=== PATIENT | male | born 1975 | race Caucasian/White ===

== ENCOUNTER 2018-11-10 20:16 | Emergency (ER) | payer OTHER ==
[~2018-11-10] VITALS: Ht 177.8 cm; Wt 93.0 kg
[2018-11-10 20:40] VITALS: BP 149/93
== END 2018-11-10 22:19 | disposition left against medical advice (07) ==
LOC: M.ERS 20:16
DX: Z53.21 Procedure and treatment not carried out due to patient leaving prior to being seen by health care provider (principal)